=== PATIENT | male | born 1990 | race Caucasian/White ===

== ENCOUNTER 2018-09-07 22:03 | Emergency (ER) | payer BC ==
[~2018-09-07] VITALS: Ht 177.8 cm; Wt 104.5 kg
[2018-09-07 22:08] VITALS: Ht 177.8 cm; Wt 104.5 kg
[2018-09-07 22:22] LABS: BASOPHILS 0.6 % (0-2); EOSINOPHILS 6.3 % (0-7); HEMATOCRIT 45.2 % (42.0-54.0); HEMOGLOBIN 15.9 g/dL (13.5-17.5); IMMATURE GRANULOCYTES 0.2 % (0-5); LYMPHOCYTES 21.7 % (15-50); MCH 30.1 pg (26.0-34.0); MCHC 35.2 g/dL (31.0-37.0); MCV 85.6 fL (80.0-100.0); MEAN PLATELET VOLUME 8.8 fL (7.4-10.4); NEUTROPHILS 62.2 % (40-80); PLATELET COUNT 298 10x3/uL (130-400); RBC 5.28 10x6/uL (4.20-6.10); RDW 12.7 % (11.5-14.5); WBC 10.2 10x3/uL (4.8-10.8)
[2018-09-07 22:35] LABS: ALBUMIN 3.4 g/dL (3.4-5.0); ANION GAP 11.7 mmol/L (8-16); CALCIUM 8.7 mg/dL (8.5-10.1); CARBON DIOXIDE 27.9 mmol/L (21.0-32.0); CREATININE - SERUM 1.8 mg/dL (0.6-1.3); POTASSIUM - SERUM 3.6 mmol/L (3.5-5.1); PROTEIN - SERUM 7.3 g/dL (6.4-8.2)
[2018-09-07 22:59] LABS: APPEARANCE HAZY (CLEAR); COLOR YELLOW (YELLOW)
[2018-09-07 23:00] LABS: BACTERIA FEW /hpf (NONE SEEN); BILIRUBIN NEGATIVE (NEGATIVE); EPITHELIAL CELLS 0-5 /hpf (0-5); GLUCOSE NEGATIVE (NEGATIVE); KETONE SMALL mg/dL (NEGATIVE); MUCUS >1+ /lpf (NONE SEEN); NITRITE NEGATIVE (NEGATIVE); PROTEIN NEGATIVE (NEGATIVE); WHITE CELLS - URINE 0-5 /hpf (0-5)
[2018-09-07] MEDS ORDERED: HYDROCODON-ACE1 EA10 PO (23:04)
[2018-09-07] MEDS ORDERED: FLOMAX0.4 MG PO (23:06)
[2018-09-07] MEDS ORDERED: ZOFRAN ODT4 MG/UDTAB PO (23:06)
[2018-09-08 02:49] VITALS: BP 139/79
== END 2018-09-08 02:49 | disposition home or self-care (01) ==
LOC: D.ER 22:03
PROVIDERS: Family Medicine
DX: N20.1 Calculus of ureter (principal); R94.5 Abnormal results of liver function studies; N28.9 Disorder of kidney and ureter, unspecified

== ENCOUNTER 2018-09-20 11:33 | Emergency (ER) | payer BC ==
[~2018-09-20] VITALS: Ht 177.8 cm; Wt 102.3 kg
[~2018-09-20 11:33] MED LIST: FLOMAX0.4 MG PO; HYDROCODON-ACE1 EA10 PO; ZOFRAN ODT4 MG/UDTAB PO
[2018-09-20 11:52] VITALS: Ht 177.8 cm; Wt 102.3 kg
[2018-09-20 12:44] LABS: ALBUMIN 3.3 g/dL (3.4-5.0); ALKALINE PHOSPHATASE 103 U/L (46-116); ALT (SGPT) 218 U/L (10-68); BILIRUBIN - TOTAL 0.62 mg/dL (0.2-1.3); CALC OSMOLALITY 279 mosm/kg (275-300); CALCIUM 8.7 mg/dL (8.5-10.1); CARBON DIOXIDE 28.2 mmol/L (21.0-32.0); CHLORIDE - SERUM 105 mmol/L (98-107); CREATININE - SERUM 1.2 mg/dL (0.6-1.3); GLUCOSE 93 mg/dL (74-106); POTASSIUM - SERUM 3.7 mmol/L (3.5-5.1); PROTEIN - SERUM 7.4 g/dL (6.4-8.2); SODIUM 141 mmol/L (136-145); UREA NITROGEN 9 mg/dL (7-18); eGFR NON AFRICAN AMERICAN 75 mL/min (90-120)
[2018-09-20 13:02] LABS: BASOPHILS 0.8 % (0-2); HEMATOCRIT 47.2 % (42.0-54.0); HEMOGLOBIN 16.5 g/dL (13.5-17.5); IMMATURE GRANULOCYTES 0.3 % (0-5); LYMPHOCYTES 18.6 % (15-50); MCH 29.9 pg (26.0-34.0); MCV 85.5 fL (80.0-100.0); MEAN PLATELET VOLUME 9.3 fL (7.4-10.4); MONOCYTES 11.5 % (2-11); NEUTROPHILS 56.8 % (40-80); PLATELET COUNT 259 10x3/uL (130-400); RBC 5.52 10x6/uL (4.20-6.10); RDW 12.9 % (11.5-14.5); WBC 11.5 10x3/uL (4.8-10.8)
[2018-09-20 13:28] LABS: APPEARANCE HAZY (CLEAR); COLOR YELLOW (YELLOW); SPECIFIC GRAVITY 1.025 (1.005-1.020)
[2018-09-20 13:29] LABS: BACTERIA FEW /hpf (NONE SEEN); BILIRUBIN NEGATIVE (NEGATIVE); EPITHELIAL CELLS OCC /hpf (0-5); GLUCOSE NEGATIVE (NEGATIVE); KETONE NEGATIVE (NEGATIVE); MUCUS <1+ /lpf (NONE SEEN); NITRITE NEGATIVE (NEGATIVE); PROTEIN 1+ mg/dL (NEGATIVE); SPERMATOZOA PRESENT /hpf (NONE SEEN); WHITE CELLS - URINE 0-5 /hpf (0-5)
[2018-09-20] MEDS ORDERED: FLOMAX0.4 MG PO (13:59)
[2018-09-20] MEDS ORDERED: HYDROCODON-ACE1 EAC7 PO (13:59)
[2018-09-20 14:21] VITALS: BP 128/82
== END 2018-09-20 14:22 | disposition home or self-care (01) ==
LOC: D.ER 11:33
PROVIDERS: Family Medicine
DX: N20.1 Calculus of ureter (principal); N20.0 Calculus of kidney

== ENCOUNTER → 2018-09-26 15:50 | Outpatient (CLI) | payer BC ==
[2018-09-20 11:52] VITALS: BMI 32.3
[~2018-09-26 15:50] MED LIST changes: +HYDROCODON-ACE1 EAC7 PO
== END | disposition home or self-care (01) ==
LOC: D.RAD 15:50
PROVIDERS: ATTEND Urology
DX: N20.0 Calculus of kidney (principal)

== ENCOUNTER → 2018-09-26 19:50 | Outpatient (CLI) | payer BC ==
[2018-09-20 11:52] VITALS: BMI 32.3
== END | disposition home or self-care (01) ==
LOC: D.LABREF 19:50
PROVIDERS: ATTEND Urology
DX: N20.0 Calculus of kidney (principal)

== ENCOUNTER 2018-10-16 06:42 | Outpatient (CLI) | payer BC ==
[~2018-10-16] VITALS: Ht 177.8 cm; Wt 102.1 kg
[2018-10-16 07:55] VITALS: Ht 177.8 cm; Wt 102.1 kg
--- NOTE | 2018-10-16 08:24 | NUR ---
PT DENIES SI AND STATED HE GOT RID OF THE ISSUES THAT CAUSED THE FEELINGS OF WANTING TO HER HIMSELF. RESOURCES GIVEN AND VERBALIZED UNDERSTANDING. PT IS A LOW RISK.
--- NOTE | 2018-10-16 10:38 | NUR ---
1026 DR NEWELL REPORTED THAT PT DID NOT HAVE ANY KIDNEY STONES ON KUB. SURGERY WAS CANCELLED. PT AWARE TO FOLLOWUP WITH DR NEWELL AND AN APPOINTMENT HAS BEEN SCHEDULED. 1031 IV DC'D. CATHETER TIP INTACT. NO BLEEDING AT SITE. BANDAID APPLIED.
== END 2018-10-16 10:40 | disposition home or self-care (01) ==
LOC: D.OPS 06:42 → D.PAN 11:25 → EDSTATUS 11:25 → D.OPS 12:30
PROVIDERS: ATTEND Urology
DX: N20.1 Calculus of ureter (principal)